=== PATIENT | female | born 1985 | race Caucasian/White ===

== ENCOUNTER 2021-10-28 10:50 | Emergency (ER) | payer BC, SELFPAY ==
[2021-10-28 10:55] VITALS: BP 212/111; PULSE 123; RESP 22; TEMP 36.8; O2SAT 100
--- NOTE | 2021-10-28 11:00 | ECG_ITS ---
Measurements Intervals [place] Rate: 101 P: OR: 0 QRS: 34 QRSD: 80 T: -15 QT: 307 QTc: 398 Interpretive Statements SINUS TACHYCARDIA WITH SINUS ARRHYTHMIA INCOMPLETE RIGHT BUNDLE BRANCH BLOCK NONSPECIFIC ST & T-WAVE ABNORMALITY- ANTEROLAT/INF LEADS BORDERLINE ECG Electronically Signed On 10-28-2021 11:10:54 CDT by Guerrero Cedillo D.O.
[2021-10-28 11:02] VITALS: BP 169/110; PULSE 129; RESP 23; O2SAT 99
--- NOTE | 2021-10-28 11:17 | ECG_ITS ---
Measurements Intervals [place] Rate: 101 P: [place]: 0 QRS: 34 QRSD: 80 T: -15 QT: 307 QTc: 398 Interpretive Statements SINUS TACHYCRDIA WITH SINUS ARRHYTHMIA INCOMPLETE RIGHT BUNDLE BRANCH BLOCK NONSPECIFIC ST & T-WAVE ABNORMALITY- ANTEROLAT/INF LEADS BORDERLINE ECG Electronically Signed On 10-28-2021 16:03:33 CDT by Guerrero Cedillo D.O.
[2021-10-28 11:40] LABS: Basophils Percent Auto 0.5 % (0.2-1.2); Eosinophils Absolute Auto 0.1 K/mm3 (0-0.3); Eosinophils Percent Auto 1.5 % (0-4.4); Hematocrit 45.2 % (37.0-47.0); Hemoglobin 15.1 g/dL (12.0-15.0); Immature Granulocyte Absolute 0.02 K/mm3 (0.00-0.031); Immature Granulocyte Percent A 0.3 % (0-0.5); Lymphocytes Absolute Auto 1.58 K/mm3 (0.9-3.2); Lymphocytes Percent Auto 19.9 % (18.3-44.2); Mean Corpuscular HGB Conc 33.4 g/dl (32-36); Mean Corpuscular Volume 86.9 fl (80-100); Mean Platelet Volume 11.7 fl (7.4-10.4); Monocytes Absolute Auto 0.7 K/mm3 (0.1-0.6); Monocytes Percent Auto 8.6 % (2.6-8.5); Neutrophils Absolute Auto 5.5 K/mm3 (1.3-6.7); Neutrophils Percent Auto 69.2 % (45.5-73.1); Platelet Count Result 185 k/mm3 (150-375); Red Cell Distribution Width 12.5 % (11.5-14.5); White Blood Count 7.9 K/mm3 (4.5-10.0)
[2021-10-28 11:50] LABS: Alanine Aminotransferase 25 U/L (6-35); Albumin Level 4.6 g/dL (3.5-5.1); Alkaline Phosphatase 96 U/L (38-126); Aspartate Amino Transferase 27 U/L (14-36); Bilirubin,Total 0.4 mg/dL (0.2-1.3); Blood Urea Nitrogen 10 mg/dL (7-17); Calcium 8.8 mg/dL (8.4-10.2); Chloride 106 mmol/L (98-107); Estimated CRCL calculation 91 ml/min; Estimated Glomerular Filt Rate > 60; Glucose 109 mg/dL (65-110); Magnesium 1.7 mg/dL (1.6-2.3); Potassium 3.3 mmol/L (3.4-5.0); Sodium 138 mmol/L (137-145)
[2021-10-28 11:53] LABS: Anion Gap 6 mmol/L (8-16); Carbon Dioxide 26 mmol/L (22-30)
[2021-10-28 12:11] VITALS: BP 159/101; PULSE 96; RESP 21; O2SAT 98
--- NOTE | 2021-10-28 12:50 | ED.RECABL ---
HPI - Recheck/Abnormal Lab/Rx General Chief Complaint: Recheck/Abnormal Lab/Rx Stated Complaint: sent for high blood pressure Time Seen by Provider: 10/28/21 10:59 History of Present Illness HPI narrative: Patient is a 36-year-old female who presents ER with elevated blood pressures. Reports she went to her rehabilitation counselor office today for her yearly female evaluation. It is found that her blood pressure was elevated and she was told to go to the ER. Patient has no history of hypertension. Denies any new sinus decongestants or other medications that may be raising her blood pressure. She reports some mild anxiety at this time. Denies fevers or chills or sweats. No chest pain or chest pressure. No headache or change in vision or change in hearing. Related Data Allergies Allergy/AdvReac Type Severity Reaction Status Date / Time hydrocodone AdvReac Mild N&V Verified 10/28/21 10:59 Review of Systems Review of Systems: All systems reviewed & are unremarkable except as noted in HPI and below Constitutional: Constitutional: Denies chills, Denies fever(s) and Denies weakness ENT: Denies nasal congestion and Denies sore throat Cardiovascular: Cardiovascular: Denies chest pain, Denies rapid heart rate and Denies radiating jaw, neck or arm pain Respiratory: Respiratory: Denies cough, Denies dyspnea and Denies wheezing Gastrointestinal: Gastrointestinal: Denies abdominal pain, Denies nausea and Denies vomiting Neurologic: Denies headache(s), Denies focal weakness and Denies numbness PMFSH Past Medical History Medical History (Updated 10/28/21 @ 12:56 by Mikael Foreman MD) Healthy female adult Surgical History Surgical History (Updated 10/28/21 @ 12:51 by Mikael Foreman MD) No pertinent past surgical history Social History Social History (Updated 10/28/21 @ 12:52 by Mikael Foreman MD) Smoking status: Never smoker Exam Narrative: GENERAL: Well-appearing, well-nourished, and in no acute distress. HEAD: Normocephalic, atraumatic. EYES: PERRL and EOMI. CHEST: Clear to auscultation. No respiratory distress. HEART: Tachycardic, regular. Normal peripheral pulses. ABDOMEN: Soft, nontender, nondistended. EXTREMITIES: Normal range of motion. No edema. SKIN: Warm, dry, no rash. NEURO: Alert and oriented x3. PSYCH: Normal mood and affect. Course Course Emergency Course: Verbal blood pressure between 150s and 180s. Will discharge home with jd and she can follow up with her primary care doctor. Vital Signs Vital signs: Vital Signs Temperature 98.3 F 10/28/21 10:55 Pulse Rate 123 H 10/28/21 10:55 Respiratory Rate 22 H 10/28/21 10:55 Blood Pressure 212/111 H 10/28/21 10:55 Pulse Oximetry 100 10/28/21 10:55 Temperature 98.3 F 10/28/21 10:55 Pulse Rate 96 10/28/21 12:11 Respiratory Rate 21 H 10/28/21 12:11 Blood Pressure 159/101 H 10/28/21 12:11 Pulse Oximetry 98 10/28/21 12:11 MDM - Recheck/Abnormal Lab/Rx Lab Data Result diagrams: 10/28/21 11:32 10/28/21 11:32 Labs: Lab Results 10/28/21 10/28/21 Range/Units 11:32 11:32 WBC 7.9 (4.5-10.0) K/mm3 RBC 5.20 (4.2-5.4) M/mm3 Hgb 15.1 H (12.0-15.0) g/dL Hct 45.2 (37.0-47.0) % MCV 86.9 (80-100) fl MCH 29.0 (26-34) pg MCHC 33.4 (32-36) g/dl RDW 12.5 (11.5-14.5) % Plt Count 185 (150-375) k/mm3 MPV 11.7 H (7.4-10.4) fl Immature Gran % (Auto) 0.3 (0-0.5) % Neut % (Auto) 69.2 (45.5-73.1) % Lymph % (Auto) 19.9 (18.3-44.2) % B[place]soe % (Auto) 8.6 H (2.6-8.5) % Eos % (Auto) 1.5 (0-4.4) % Baso % (Auto) 0.5 (0.2-1.2) % Lymph # (Auto) 1.58 (0.9-3.2) K/mm3 B[place]soe # (Auto) 0.7 H (0.1-0.6) K/mm3 Eos # (Auto) 0.1 (0-0.3) K/mm3 Baso # (Auto) 0.0 (0.0-0.1) K/mm3 Abs Immat Gran (auto) 0.02 (0.00-0.031) K/mm3 Absolute Neuts (auto) 5.5 (1.3-6.7) K/mm3 Absolute Nucleated RBC 0.0 (0.0-0.012) K/mm3 Nucleated RBC %
[2021-10-28 13:11] VITALS: BP 133/88; PULSE 94; RESP 18; O2SAT 98
== END 2021-10-28 13:14 | disposition home or self-care (01) ==
PROVIDERS: Emergency Provider Emergency Medicine
DX: I10 Essential (primary) hypertension (principal); R00.0 Tachycardia, unspecified; I45.10 Unspecified right bundle-branch block; R94.31 Abnormal electrocardiogram [ECG] [EKG]
CPT/HCPCS: 36415; 80053; 83735; 85025; 93005; 99283